=== PATIENT | male | born 1995 | race Caucasian/White ===

== ENCOUNTER 2017-01-20 01:54 | Emergency (ER) | payer OTHER, MEDICAID ==
[~2017-01-20] VITALS: Ht 180.3 cm; Wt 109.1 kg
[~2017-01-20 01:54] MED LIST: HALO1TAB PO; OLAN5Z PO
[2017-01-20 02:56] LABS: BASOPHILS % (AUTO) 0.4 % (0.0-2.0); EOSINOPHILS % (AUTO) 2.1 % (1.0-6.0); HEMATOCRIT 42.7 % (41-53); HEMOGLOBIN 13.9 g/dL (13.5-17.5); LYMPHOCYTES # (AUTO) 2.6 K/uL (1.0-4.8); LYMPHOCYTES % (AUTO) 22.8 % (22.0-44.0); MEAN CORPUSCULAR HEMOGLOBIN 29.2 pg (26.0-34.0); MEAN CORPUSCULAR HGB CONC 32.6 G/dL (31.0-37.0); MEAN CORPUSCULAR VOLUME 90 fL (80-100); MONOCYTES # (AUTO) 0.8 K/uL (0.1-1.0); MONOCYTES % (AUTO) 7.2 % (2.0-9.0); NEUTROPHILS # (AUTO) 7.8 K/uL (1.8-7.7); NEUTROPHILS % (AUTO) 67.5 % (40.0-70.0); PLATELET COUNT (AUTO) 248 K/uL (150-450); RED BLOOD CELL COUNT(AUTO) 4.77 MIL/uL (4.50-5.90); RED CELL DISTRIBUTION WIDTH 13.7 % (11.5-14.5); WHITE BLOOD COUNT (AUTO) 11.6 K/uL (4.5-11.0)
[2017-01-20 02:58] LABS: ANION GAP 11 mmol/L (8-16); CARBON DIOXIDE 28 mmol/L (22-29); CHLORIDE 103 mmol/L (98-107); CREATININE 1.13 mg/dL (0.60-1.30); GLOMERULAR FILTR. RATE CALC > 60 mL/min (>60); POTASSIUM 3.9 mmol/L (3.5-5.1); SODIUM SERUM 142 mmol/L (136-145); UREA NITROGEN, BLOOD 9 mg/dL (7-18)
[2017-01-20 03:05] LABS: ALANINE AMINOTRANSFERASE 47 U/L (12-78); ALBUMIN 4.6 g/dL (3.4-5.0); ASPARTATE AMINOTRANSFERASE 30 U/L (15-37); BILIRUBIN,TOTAL 0.6 mg/dL (0.1-1.0); TOTAL PROTEIN, SERUM 8.6 g/dL (6.4-8.2)
[2017-01-20 03:49] VITALS: BP 147/83
== END 2017-01-20 04:35 | disposition short-term general hospital (02) ==
LOC: EMS 01:55
DX: F20.9 Schizophrenia, unspecified (principal); F31.9 Bipolar disorder, unspecified; F12.90 Cannabis use, unspecified, uncomplicated
CPT/HCPCS: 36415; 80053; 80307; 85025; 99285; G0480

== ENCOUNTER 2017-05-18 00:16 | Emergency (ER) | payer MEDICAID, OTHER ==
[~2017-05-18] VITALS: Ht 190.5 cm; Wt 116.4 kg
[2017-05-18 02:57] VITALS: BP 134/88
== END 2017-05-18 03:32 | disposition home or self-care (01) ==
LOC: EMS 00:17
DX: S13.4XXA Sprain of ligaments of cervical spine, initial encounter (principal); S80.212A Abrasion, left knee, initial encounter; V19.9XXA Pedal cyclist (driver) (passenger) injured in unspecified traffic accident, initial encounter; Y93.I9 Activity, other involving external motion; Y92.89 Other specified places as the place of occurrence of the external cause; Y99.8 Other external cause status
CPT/HCPCS: 72125; 99284

== ENCOUNTER 2017-05-18 05:15 | Emergency (ER) | payer OTHER, MEDICAID ==
[~2017-05-18] VITALS: Ht 167.6 cm; Wt 81.8 kg
[2017-05-18 05:56] LABS: BASOPHILS % (AUTO) 0.4 % (0.0-2.0); EOSINOPHILS % (AUTO) 2.9 % (1.0-6.0); HEMOGLOBIN 12.6 g/dL (13.5-17.5); LYMPHOCYTES % (AUTO) 19.6 % (22.0-44.0); MEAN CORPUSCULAR HEMOGLOBIN 29.8 pg (26.0-34.0); MEAN CORPUSCULAR VOLUME 87 fL (80-100); MONOCYTES # (AUTO) 0.8 K/uL (0.1-1.0); MONOCYTES % (AUTO) 8.5 % (2.0-9.0); NEUTROPHILS # (AUTO) 6.9 K/uL (1.8-7.7); NEUTROPHILS % (AUTO) 68.6 % (40.0-70.0); PLATELET COUNT (AUTO) 197 K/uL (150-450); RED BLOOD CELL COUNT(AUTO) 4.23 MIL/uL (4.50-5.90); RED CELL DISTRIBUTION WIDTH 14.4 % (11.5-14.5)
[2017-05-18 06:05] LABS: ANION GAP 8 mmol/L (8-16); CALCIUM, TOTAL 9.2 mg/dL (8.8-10.5); CARBON DIOXIDE 28 mmol/L (22-29); CHLORIDE 102 mmol/L (98-107); CREATININE 1.04 mg/dL (0.60-1.30); GLOMERULAR FILTR. RATE CALC > 60 mL/min (>60); POTASSIUM 3.4 mmol/L (3.5-5.1); SODIUM SERUM 138 mmol/L (136-145); UREA NITROGEN, BLOOD 18 mg/dL (7-18)
[2017-05-18 06:11] LABS: ALANINE AMINOTRANSFERASE 39 U/L (12-78); ALBUMIN 4.1 g/dL (3.4-5.0); ASPARTATE AMINOTRANSFERASE 25 U/L (15-37); BILIRUBIN,TOTAL 0.5 mg/dL (0.1-1.0); TOTAL PROTEIN, SERUM 7.4 g/dL (6.4-8.2)
[2017-05-18] MEDS ORDERED: HALOPERIDOL 5 MG TABLET PO ONE (06:45)
[2017-05-18] MEDS ORDERED: OLANZapine 5 MG TABLET PO ONE (10:15)
[2017-05-18 17:28] VITALS: BP 129/80
== END 2017-05-18 18:24 | disposition short-term general hospital (02) ==
LOC: EEVIPCON 05:16 → EMS 05:16
DX: F25.9 Schizoaffective disorder, unspecified (principal); F31.9 Bipolar disorder, unspecified
CPT/HCPCS: 36415; 80053; 80307; 85025; 99291; G0480

== ENCOUNTER 2017-06-30 19:45 | Emergency (ER) | payer OTHER, MEDICAID ==
[~2017-06-30] VITALS: Ht 177.8 cm; Wt 88.6 kg
[2017-06-30 20:12] LABS: BASOPHILS % (AUTO) 0.5 % (0.0-2.0); HEMOGLOBIN 13.6 g/dL (13.5-17.5); LYMPHOCYTES # (AUTO) 3.9 K/uL (1.0-4.8); LYMPHOCYTES % (AUTO) 31.5 % (22.0-44.0); MEAN CORPUSCULAR HEMOGLOBIN 29.6 pg (26.0-34.0); MEAN CORPUSCULAR HGB CONC 33.1 G/dL (31.0-37.0); MEAN CORPUSCULAR VOLUME 90 fL (80-100); MONOCYTES # (AUTO) 0.7 K/uL (0.1-1.0); MONOCYTES % (AUTO) 5.7 % (2.0-9.0); NEUTROPHILS # (AUTO) 7.3 K/uL (1.8-7.7); NEUTROPHILS % (AUTO) 58.3 % (40.0-70.0); PLATELET COUNT (AUTO) 240 K/uL (150-450); RED BLOOD CELL COUNT(AUTO) 4.57 MIL/uL (4.50-5.90); RED CELL DISTRIBUTION WIDTH 14.2 % (11.5-14.5); WHITE BLOOD COUNT (AUTO) 12.5 K/uL (4.5-11.0)
[2017-06-30 20:23] LABS: ANION GAP 9 mmol/L (8-16); CALCIUM, TOTAL 9.3 mg/dL (8.8-10.5); CARBON DIOXIDE 27 mmol/L (22-29); CHLORIDE 103 mmol/L (98-107); CREATININE 1.04 mg/dL (0.60-1.30); GLOMERULAR FILTR. RATE CALC > 60 mL/min (>60); POTASSIUM 3.6 mmol/L (3.5-5.1); SODIUM SERUM 139 mmol/L (136-145); UREA NITROGEN, BLOOD 14 mg/dL (7-18)
[2017-06-30 20:29] LABS: ALANINE AMINOTRANSFERASE 43 U/L (12-78); ALBUMIN 4.3 g/dL (3.4-5.0); ASPARTATE AMINOTRANSFERASE 19 U/L (15-37); BILIRUBIN,TOTAL 0.3 mg/dL (0.1-1.0); TOTAL PROTEIN, SERUM 8.1 g/dL (6.4-8.2)
[2017-06-30] MEDS ORDERED: LORazepam 2 MG/ML VIAL IM ONE (21:45)
[2017-06-30] MEDS ORDERED: HALOPERIDOL LACTATE 5 MG/ML VIAL IM ONE (21:45)
[2017-06-30] MEDS ORDERED: DiphenhydrAMINE HCL 50 MG/ML VIAL IM ONE (21:45)
[2017-06-30 22:42] VITALS: BP 141/78
== END 2017-07-01 03:51 | disposition short-term general hospital (02) ==
LOC: EMS 19:47
DX: F29 Unspecified psychosis not due to a substance or known physiological condition (principal); F91.9 Conduct disorder, unspecified; F31.9 Bipolar disorder, unspecified; F20.9 Schizophrenia, unspecified
CPT/HCPCS: 36415; 80053; 80307; 85025; 96372; 99285; G0480; J1200; J1630; J2060

== ENCOUNTER 2017-09-29 19:33 | Emergency (ER) | payer OTHER, MEDICAID ==
[~2017-09-29] VITALS: Ht 188 cm; Wt 113.6 kg
[~2017-09-29 19:33] MED LIST changes: +OLAN5TAB40 PO; -OLAN5Z PO
[2017-09-29] MEDS ORDERED: LORazepam 2 MG TABLET PO ONE (20:00)
[2017-09-29] MEDS ORDERED: HALOPERIDOL 5 MG TABLET PO ONE (20:00)
[2017-09-29 20:10] LABS: BASOPHILS % (AUTO) 0.8 % (0.0-2.0); EOSINOPHILS # (AUTO) 0.11 K/uL (0.00-0.70); EOSINOPHILS % (AUTO) 0.84 % (1.0-6.0); HEMATOCRIT 43.4 % (41-53); HEMOGLOBIN 14.5 g/dL (13.5-17.5); LYMPHOCYTES # (AUTO) 2.6 K/uL (1.0-4.8); LYMPHOCYTES % (AUTO) 20.3 % (22.0-44.0); MEAN CORPUSCULAR HEMOGLOBIN 29.2 pg (26.0-34.0); MEAN CORPUSCULAR HGB CONC 33.4 G/dL (31.0-37.0); MEAN CORPUSCULAR VOLUME 87 fL (80-100); MONOCYTES # (AUTO) 0.8 K/uL (0.1-1.0); MONOCYTES % (AUTO) 6.2 % (2.0-9.0); NEUTROPHILS # (AUTO) 9.1 K/uL (1.8-7.7); PLATELET COUNT (AUTO) 211 K/uL (150-450); RED BLOOD CELL COUNT(AUTO) 4.98 MIL/uL (4.50-5.90); RED CELL DISTRIBUTION WIDTH 14.2 % (11.5-14.5); WHITE BLOOD COUNT (AUTO) 12.7 K/uL (4.5-11.0)
[2017-09-29] MEDS ORDERED: ACETAMINOPHEN 500 MG TABLET PO ONE (20:15)
[2017-09-29 20:21] LABS: ANION GAP 8 mmol/L (8-16); CALCIUM, TOTAL 9.8 mg/dL (8.8-10.5); CARBON DIOXIDE 29 mmol/L (22-29); CHLORIDE 100 mmol/L (98-107); GLOMERULAR FILTR. RATE CALC > 60 mL/min (>60); POTASSIUM 3.5 mmol/L (3.5-5.1); SODIUM SERUM 137 mmol/L (136-145); UREA NITROGEN, BLOOD 17 mg/dL (7-18)
[2017-09-29 20:25] LABS: ALANINE AMINOTRANSFERASE 46 U/L (12-78); ALBUMIN 4.7 g/dL (3.4-5.0); ASPARTATE AMINOTRANSFERASE 30 U/L (15-37); BILIRUBIN,TOTAL 0.6 mg/dL (0.1-1.0); TOTAL PROTEIN, SERUM 8.4 g/dL (6.4-8.2)
[2017-09-29 21:53] VITALS: BP 136/84
== END 2017-09-29 23:11 ==
LOC: EMS 19:38
DX: F25.9 Schizoaffective disorder, unspecified (principal); F31.9 Bipolar disorder, unspecified
CPT/HCPCS: 36415; 70450; 80053; 80307; 85025; 99285; G0480

== ENCOUNTER 2018-07-01 23:47 | Emergency (ER) | payer OTHER, MEDICAID ==
[~2018-07-01] VITALS: Ht 180.3 cm; Wt 104.5 kg
[2018-07-02 00:34] LABS: BASOPHILS % (AUTO) 0.5 % (0.0-2.0); EOSINOPHILS % (AUTO) 3.4 % (1.0-6.0); HEMATOCRIT 42.4 % (41-53); LYMPHOCYTES # (AUTO) 3.3 K/uL (1.0-4.8); LYMPHOCYTES % (AUTO) 28.5 % (22.0-44.0); MEAN CORPUSCULAR HEMOGLOBIN 30.2 pg (26.0-34.0); MEAN CORPUSCULAR VOLUME 92 fL (80-100); MONOCYTES # (AUTO) 0.8 K/uL (0.1-1.0); NEUTROPHILS % (AUTO) 60.6 % (40.0-70.0); PLATELET COUNT (AUTO) 229 K/uL (150-450); RED BLOOD CELL COUNT(AUTO) 4.63 MIL/uL (4.50-5.90); RED CELL DISTRIBUTION WIDTH 13.7 % (11.5-14.5)
[2018-07-02 00:41] LABS: ANION GAP 8 mmol/L (8-16); CALCIUM, TOTAL 9.3 mg/dL (8.8-10.5); CARBON DIOXIDE 28 mmol/L (22-29); CHLORIDE 106 mmol/L (98-107); CREATININE 1.06 mg/dL (0.60-1.30); GLOMERULAR FILTR. RATE CALC > 60 mL/min (>60); GLUCOSE,RANDOM 93 mg/dL (70-110); POTASSIUM 3.1 mmol/L (3.5-5.1); SODIUM SERUM 142 mmol/L (136-145); UREA NITROGEN, BLOOD 20 mg/dL (7-18)
[2018-07-02 00:48] LABS: ALANINE AMINOTRANSFERASE 50 U/L (12-78); ALBUMIN 4.2 g/dL (3.4-5.0); ALKALINE PHOSPHATASE 69 U/L (46-116); ASPARTATE AMINOTRANSFERASE 24 U/L (15-37); BILIRUBIN,TOTAL 0.4 mg/dL (0.1-1.0); TOTAL PROTEIN, SERUM 8.1 g/dL (6.4-8.2)
[2018-07-02] MEDS ORDERED: DiphenhydrAMINE HCL 50 MG/ML VIAL IM ONE (01:00)
[2018-07-02] MEDS ORDERED: LORazepam 2 MG/ML VIAL IM ONE (01:00)
[2018-07-02] MEDS ORDERED: HALOPERIDOL LACTATE 5 MG/ML VIAL IM ONE (01:00)
[2018-07-02] MEDS ORDERED: POTASSIUM CHLORIDE 20 MEQ ER TABLET PO ONE (01:45)
[2018-07-02 06:10] VITALS: BP 143/75
== END 2018-07-02 07:29 | disposition short-term general hospital (02) ==
LOC: EMS 23:47
DX: F20.9 Schizophrenia, unspecified (principal); F31.9 Bipolar disorder, unspecified; F12.10 Cannabis abuse, uncomplicated; Z79.899 Other long term (current) drug therapy
CPT/HCPCS: 36415; 80053; 85025; 96372; 99285; G0480; J1200; J1630; J2060

== ENCOUNTER 2019-01-22 07:43 | Emergency (ER) | payer OTHER, MEDICAID ==
[~2019-01-22] VITALS: Ht 193 cm; Wt 122.7 kg
[2019-01-22 08:36] LABS: BASOPHILS % (AUTO) 0.7 % (0.0-2.0); EOSINOPHILS % (AUTO) 0.8 % (1.0-6.0); HEMATOCRIT 44.8 % (41-53); HEMOGLOBIN 14.9 g/dL (13.5-17.5); LYMPHOCYTES # (AUTO) 2.1 K/uL (1.0-4.8); LYMPHOCYTES % (AUTO) 19.2 % (22.0-44.0); MEAN CORPUSCULAR HEMOGLOBIN 29.7 pg (26.0-34.0); MEAN CORPUSCULAR HGB CONC 33.3 G/dL (31.0-37.0); MEAN CORPUSCULAR VOLUME 89 fL (80-100); MONOCYTES # (AUTO) 0.5 K/uL (0.1-1.0); MONOCYTES % (AUTO) 4.8 % (2.0-9.0); NEUTROPHILS # (AUTO) 8.1 K/uL (1.8-7.7); NEUTROPHILS % (AUTO) 74.5 % (40.0-70.0); PLATELET COUNT (AUTO) 251 K/uL (150-450); RED BLOOD CELL COUNT(AUTO) 5.03 MIL/uL (4.50-5.90)
[2019-01-22 09:01] LABS: ANION GAP 10 mmol/L (8-16); CALCIUM, TOTAL 9.9 mg/dL (8.8-10.5); CARBON DIOXIDE 28 mmol/L (22-29); CHLORIDE 101 mmol/L (98-107); CREATININE 0.89 mg/dL (0.60-1.30); GLOMERULAR FILTR. RATE CALC > 60 mL/min (>60); GLUCOSE,RANDOM 114 mg/dL (70-110); POTASSIUM 3.6 mmol/L (3.5-5.1); SODIUM SERUM 139 mmol/L (136-145); UREA NITROGEN, BLOOD 12 mg/dL (7-18)
[2019-01-22 09:07] LABS: ALANINE AMINOTRANSFERASE 74 U/L (12-78); ALBUMIN 4.7 g/dL (3.4-5.0); ALKALINE PHOSPHATASE 74 U/L (46-116); ASPARTATE AMINOTRANSFERASE 33 U/L (15-37); BILIRUBIN,TOTAL 0.4 mg/dL (0.1-1.0)
[2019-01-22] MEDS ORDERED: DiphenhydrAMINE HCL 50 MG/ML VIAL ONE (10:47)
[2019-01-22] MEDS ORDERED: LORazepam 2 MG/ML VIAL ONE (10:47)
[2019-01-22] MEDS ORDERED: HALOPERIDOL LACTATE 5 MG/ML VIAL ONE (10:47)
[2019-01-22] MEDS ORDERED: LORazepam 2 MG/ML VIAL IM ONE (11:00)
[2019-01-22] MEDS ORDERED: HALOPERIDOL LACTATE 5 MG/ML VIAL IM ONE (11:00)
[2019-01-22] MEDS ORDERED: DiphenhydrAMINE HCL 50 MG/ML VIAL IM ONE (11:00)
[2019-01-22 17:20] VITALS: BP 131/79
== END 2019-01-22 17:30 ==
LOC: EMS 07:43
DX: F25.9 Schizoaffective disorder, unspecified (principal); F31.9 Bipolar disorder, unspecified; F12.90 Cannabis use, unspecified, uncomplicated; Z79.899 Other long term (current) drug therapy
CPT/HCPCS: 36415; 80053; 85025; 96372; 99285; G0480; J1200; J1630; J2060

== ENCOUNTER 2021-02-06 13:01 | Inpatient (IN) | payer MEDICAID, OTHER ==
[~2021-02-06] VITALS: Ht 185.4 cm; Wt 110.8 kg
[2021-02-06 15:50] LABS: COVID AG,FIA SOURCE NASOPHARYNGEAL
[2021-02-06 16:47] LABS: AMPHET/METH SCREEN,URINE NEGATIVE (NEGATIVE); BARBITURATE SCREEN, URINE NEGATIVE (NEGATIVE); BENZODIAZEPINES SCREEN,URINE NEGATIVE (NEGATIVE); CANNABINOID SCREEN,URINE NEGATIVE (NEGATIVE); COCAINE SCREEN,URINE NEGATIVE (NEGATIVE); METHADONE SCREEN, URINE NEGATIVE (NEGATIVE); OPIATE SCREEN,URINE NEGATIVE (NEGATIVE)
[2021-02-06 16:49] LABS: PHENCYCLIDINE SCREEN,URINE NEGATIVE (NEGATIVE)
[2021-02-06] MEDS ORDERED: ZOLPIDEM TARTRATE 10 MG TABLET PO PRN (17:45)
[2021-02-06 20:25] VITALS: BP 158/78
[2021-02-07 06:07] VITALS: BP 151/84
[2021-02-07] MEDS: LORazepam 2 MG TABLET PO PRN ×2 (08:12→17:15)
[2021-02-07] MEDS: HALOPERIDOL 5 MG TABLET PO PRN ×2 (08:12→17:15)
[2021-02-07] MEDS ORDERED: NICOTINE 14 MG/24 HOUR PATCH TD PRN (08:15)
[2021-02-07] MEDS ORDERED: CloNIDine HCL 0.1 MG TABLET PO PRN (08:15)
[2021-02-07] MEDS ORDERED: GuaiFENesin/D-METHORPHAN [SUGAR-FREE] 200-20MG/10 ML SYRUP UDCUP PO PRN (08:15)
[2021-02-07] MEDS ORDERED: PETROLATUM,WHITE 28 GM JELLY TP PRN (08:15)
[2021-02-07] MEDS ORDERED: MAG HYDROX/AL HYDROX/SIMETH ES 30 ML SUSPENSION UDCUP PO PRN (08:15)
[2021-02-07] MEDS ORDERED: MAGNESIUM HYDROXIDE SUSPENSION 30 ML UDCUP PO PRN (08:15)
[2021-02-07] MEDS ORDERED: DOCUSATE SODIUM 100 MG CAPSULE PO PRN (08:15)
[2021-02-07] MEDS ORDERED: ONDANSETRON HCL 4 MG TABLET PO PRN (08:15)
[2021-02-07] MEDS ORDERED: ALBUTEROL SULFATE HFA 90 MCG/PUFF 8 GM INHALER IH PRN (08:15)
[2021-02-07] MEDS ORDERED: LOPERAMIDE HCL 2 MG CAPSULE PO PRN (08:15)
[2021-02-07] MEDS: OLANZapine 5 MG RAPDIS TABLET PO SCH ×2 (10:00→20:10)
[2021-02-07 11:03] VITALS: BP 140/85
[2021-02-07] MEDS: IBUPROFEN 400 MG TABLET PO PRN (17:16)
[2021-02-07 17:50] VITALS: BP 145/96
[2021-02-07 18:22] VITALS: BP 122/74
[2021-02-08 08:05] VITALS: BP 117/49
[2021-02-08 08:14] LABS: CHOL/HDL RATIO 4.4 (4.2-7.3); FREE T4 (FREE THYROXINE) 1.21 ng/dL (0.76-1.46); THYROID STIMULATING HORMONE 0.92 uIU/mL (0.36-3.74)
[2021-02-08] MEDS: HALOPERIDOL 5 MG TABLET PO PRN (08:15)
[2021-02-08] MEDS: OLANZapine 5 MG RAPDIS TABLET PO SCH (08:16)
[2021-02-08] MEDS: LORazepam 2 MG TABLET PO PRN ×3 (10:41→20:03)
[2021-02-08 19:56] VITALS: BP 117/49
[2021-02-08] MEDS: IBUPROFEN 400 MG TABLET PO PRN (20:02)
[2021-02-08 21:02] VITALS: BP 116/62
[2021-02-08] MEDS: OLANZapine 10 MG RAPDIS TABLET PO SCH (21:32)
[2021-02-09 04:29] VITALS: BP 123/67
[2021-02-09 08:20] VITALS: BP 142/76
[2021-02-09] MEDS: OLANZapine 10 MG RAPDIS TABLET PO SCH ×2 (08:23→20:44)
[2021-02-09] MEDS: LORazepam 2 MG TABLET PO PRN ×2 (08:36→17:35)
[2021-02-09 16:04] VITALS: BP 140/80
[2021-02-09] MEDS: HALOPERIDOL 5 MG TABLET PO PRN (17:35)
[2021-02-09] MEDS: IBUPROFEN 400 MG TABLET PO PRN (17:36)
[2021-02-10 02:36] VITALS: BP 125/68
[2021-02-10 08:21] VITALS: BP 140/92
[2021-02-10] MEDS: OLANZapine 10 MG RAPDIS TABLET PO SCH (08:24)
[2021-02-10] MEDS: LORazepam 2 MG TABLET PO PRN ×2 (08:24→18:57)
[2021-02-10] MEDS: RisperiDONE 2 MG TABLET PO SCH ×2 (11:00→21:00)
[2021-02-10] MEDS: LITHIUM CARBONATE 600 MG CAPSULE PO SCH ×3 (11:06→16:37)
[2021-02-10 16:03] VITALS: BP 104/60
[2021-02-10 18:17] VITALS: BP 136/70
[2021-02-10] MEDS: IBUPROFEN 400 MG TABLET PO PRN (18:17)
[2021-02-11 01:24] VITALS: BP 146/89
[2021-02-11 08:05] VITALS: BP 150/75
[2021-02-11] MEDS: LITHIUM CARBONATE 600 MG CAPSULE PO SCH (11:17)
[2021-02-11] MEDS: RisperiDONE 2 MG TABLET PO SCH (11:18)
[2021-02-11] MEDS ORDERED: LITH600C5 PO (12:15)
[2021-02-11] MEDS ORDERED: RISP2TAB45 PO (12:15)
== END 2021-02-11 14:45 | disposition home or self-care (01) | DRG 750 ==
LOC: EMS 13:01 → B3A 17:31
PROVIDERS: ADMIT Psychiatry & Neurology Child & Adolescent Psychiatry; ATTEND Psychiatry & Neurology Child & Adolescent Psychiatry
DX: F20.9 Schizophrenia, unspecified (principal); I95.9 Hypotension, unspecified; R45.851 Suicidal ideations; Z20.822 Contact with and (suspected) exposure to COVID-19; K59.00 Constipation, unspecified; F41.9 Anxiety disorder, unspecified; F12.90 Cannabis use, unspecified, uncomplicated
CPT/HCPCS: 84439; 84443; 87426; 99285

== ENCOUNTER 2021-02-13 18:12 | Emergency (ER) | payer MEDICAID, OTHER ==
[~2021-02-13] VITALS: Ht 188 cm; Wt 102.3 kg
[~2021-02-13 18:12] MED LIST changes: -HALO1TAB PO; +LITH600C5 PO; -OLAN5TAB40 PO; +RISP2TAB45 PO
[2021-02-13 19:16] LABS: BASOPHILS % (AUTO) 0.6 % (0.0-2.0); EOSINOPHILS % (AUTO) 1.3 % (1.0-6.0); HEMATOCRIT 44.8 % (41-53); HEMOGLOBIN 14.7 g/dL (13.5-17.5); LYMPHOCYTES # (AUTO) 2.7 K/uL (1.0-4.8); LYMPHOCYTES % (AUTO) 27.7 % (22.0-44.0); MEAN CORPUSCULAR HEMOGLOBIN 29.6 pg (26.0-34.0); MEAN CORPUSCULAR HGB CONC 32.9 G/dL (31.0-37.0); MEAN CORPUSCULAR VOLUME 90 fL (80-100); MONOCYTES # (AUTO) 0.7 K/uL (0.1-1.0); MONOCYTES % (AUTO) 7.3 % (2.0-9.0); NEUTROPHILS # (AUTO) 6.1 K/uL (1.8-7.7); NEUTROPHILS % (AUTO) 63.1 % (40.0-70.0); PLATELET COUNT (AUTO) 216 K/uL (150-450); RED BLOOD CELL COUNT(AUTO) 4.98 MIL/uL (4.50-5.90); RED CELL DISTRIBUTION WIDTH 13.2 % (11.5-14.5)
[2021-02-13 19:25] LABS: ANION GAP 8 mmol/L (8-16); CALCIUM, TOTAL 10.1 mg/dL (8.8-10.5); CARBON DIOXIDE 30 mmol/L (22-29); CHLORIDE 101 mmol/L (98-107); GLOMERULAR FILTR. RATE CALC > 60 mL/min (>60); GLUCOSE,RANDOM 90 mg/dL (70-110); POTASSIUM 4.3 mmol/L (3.5-5.1); SODIUM SERUM 139 mmol/L (136-145); UREA NITROGEN, BLOOD 14 mg/dL (7-18)
[2021-02-13 19:31] LABS: ALANINE AMINOTRANSFERASE 44 U/L (12-78); ALBUMIN 4.5 g/dL (3.4-5.0); ALKALINE PHOSPHATASE 77 U/L (46-116); ASPARTATE AMINOTRANSFERASE 23 U/L (15-37); BILIRUBIN,TOTAL 0.5 mg/dL (0.1-1.0); TOTAL PROTEIN, SERUM 8.8 g/dL (6.4-8.2)
[2021-02-13] MEDS ORDERED: RisperiDONE 1 MG TABLET PO ONE (20:00)
[2021-02-13 20:59] VITALS: BP 136/83
== END 2021-02-13 21:00 | disposition home or self-care (01) ==
LOC: EMS 18:12
DX: F20.9 Schizophrenia, unspecified (principal); R51.9 Headache, unspecified; F31.9 Bipolar disorder, unspecified; F12.90 Cannabis use, unspecified, uncomplicated
CPT/HCPCS: 36415; 80053; 85025; 99283; G0480

== ENCOUNTER 2021-02-14 20:57 | Emergency (ER) | payer OTHER ==
[~2021-02-14] VITALS: Ht 188 cm; Wt 102.3 kg
[2021-02-14 22:30] VITALS: BP 135/90
== END 2021-02-14 23:20 | disposition home or self-care (01) ==
LOC: EMS 21:10
DX: S80.211A Abrasion, right knee, initial encounter (principal); F31.9 Bipolar disorder, unspecified; F20.9 Schizophrenia, unspecified; F12.90 Cannabis use, unspecified, uncomplicated; Z79.899 Other long term (current) drug therapy; W18.39XA Other fall on same level, initial encounter; Y93.89 Activity, other specified; Y92.89 Other specified places as the place of occurrence of the external cause; Y99.8 Other external cause status
CPT/HCPCS: 99281; Z7502

== ENCOUNTER 2021-03-16 16:11 | Inpatient (IN) | payer MEDICAID, OTHER ==
[~2021-03-16] VITALS: Ht 180.3 cm; Wt 112.7 kg
[2021-03-16] MEDS ORDERED: HALOPERIDOL LACTATE 5 MG/ML VIAL IM ONE (17:15)
[2021-03-16] MEDS ORDERED: LORazepam 2 MG/ML VIAL IM ONE (17:15)
[2021-03-16] MEDS ORDERED: DiphenhydrAMINE HCL 50 MG/ML VIAL IM ONE (17:15)
[2021-03-16 19:08] LABS: BASOPHILS % (AUTO) 0.2 % (0.0-2.0); EOSINOPHILS % (AUTO) 0.1 % (1.0-6.0); HEMATOCRIT 40.7 % (41-53); HEMOGLOBIN 13.1 g/dL (13.5-17.5); LYMPHOCYTES # (AUTO) 1.9 K/uL (1.0-4.8); LYMPHOCYTES % (AUTO) 14.8 % (22.0-44.0); MEAN CORPUSCULAR HEMOGLOBIN 28.9 pg (26.0-34.0); MEAN CORPUSCULAR HGB CONC 32.1 G/dL (31.0-37.0); MEAN CORPUSCULAR VOLUME 90 fL (80-100); MONOCYTES # (AUTO) 0.6 K/uL (0.1-1.0); MONOCYTES % (AUTO) 4.8 % (2.0-9.0); NEUTROPHILS # (AUTO) 10.2 K/uL (1.8-7.7); NEUTROPHILS % (AUTO) 80.1 % (40.0-70.0); PLATELET COUNT (AUTO) 214 K/uL (150-450); RED BLOOD CELL COUNT(AUTO) 4.53 MIL/uL (4.50-5.90); RED CELL DISTRIBUTION WIDTH 13.8 % (11.5-14.5)
[2021-03-16 19:19] LABS: ANION GAP 12 mmol/L (8-16); CALCIUM, TOTAL 9.1 mg/dL (8.8-10.5); CARBON DIOXIDE 27 mmol/L (22-29); CHLORIDE 103 mmol/L (98-107); CREATININE 1.03 mg/dL (0.60-1.30); GLOMERULAR FILTR. RATE CALC > 60 mL/min (>60); GLUCOSE,RANDOM 87 mg/dL (70-110); POTASSIUM 3.5 mmol/L (3.5-5.1); SODIUM SERUM 142 mmol/L (136-145); UREA NITROGEN, BLOOD 12 mg/dL (7-18)
[2021-03-16 19:24] LABS: ALANINE AMINOTRANSFERASE 63 U/L (12-78); ALBUMIN 4.1 g/dL (3.4-5.0); ALKALINE PHOSPHATASE 64 U/L (46-116); ASPARTATE AMINOTRANSFERASE 26 U/L (15-37); BILIRUBIN,TOTAL 0.5 mg/dL (0.1-1.0); TOTAL PROTEIN, SERUM 7.3 g/dL (6.4-8.2)
[2021-03-16] MEDS ORDERED: ZOLPIDEM TARTRATE 10 MG TABLET PO PRN (19:45)
[2021-03-16] MEDS ORDERED: LORazepam 2 MG TABLET PO PRN (19:45)
[2021-03-16] MEDS ORDERED: HALOPERIDOL 5 MG TABLET PO PRN (19:45)
[2021-03-16 20:38] LABS: LITHIUM < 0.20 mmol/L (0.60-1.20)
[2021-03-16 20:45] LABS: COVID AG,FIA SOURCE NASOPHARYNGEAL
[2021-03-17] MEDS ORDERED: DOCUSATE SODIUM 100 MG CAPSULE PO PRN (07:45)
[2021-03-17] MEDS ORDERED: LOPERAMIDE HCL 2 MG CAPSULE PO PRN (07:45)
[2021-03-17] MEDS ORDERED: ONDANSETRON HCL 4 MG TABLET PO PRN (07:45)
[2021-03-17] MEDS ORDERED: MAG HYDROX/AL HYDROX/SIMETH ES 30 ML SUSPENSION UDCUP PO PRN (07:45)
[2021-03-17] MEDS ORDERED: MAGNESIUM HYDROXIDE SUSPENSION 30 ML UDCUP PO PRN (07:45)
[2021-03-17] MEDS ORDERED: PETROLATUM,WHITE 28 GM JELLY TP PRN (07:45)
[2021-03-17] MEDS ORDERED: CloNIDine HCL 0.1 MG TABLET PO PRN (07:45)
[2021-03-17] MEDS ORDERED: GuaiFENesin/D-METHORPHAN [SUGAR-FREE] 200-20MG/10 ML SYRUP UDCUP PO PRN (07:45)
[2021-03-17] MEDS ORDERED: NICOTINE 14 MG/24 HOUR PATCH TD PRN (07:45)
[2021-03-17] MEDS ORDERED: ALBUTEROL SULFATE HFA 90 MCG/PUFF 8 GM INHALER IH PRN (07:45)
[2021-03-17] MEDS ORDERED: DiphenhydrAMINE HCL 50 MG/ML VIAL IM ONE (08:00)
[2021-03-17] MEDS ORDERED: LORazepam 2 MG/ML VIAL IM ONE (08:00)
[2021-03-17] MEDS ORDERED: HALOPERIDOL LACTATE 5 MG/ML VIAL IM ONE (08:00)
[2021-03-17] MEDS: LITHIUM CARBONATE 600 MG CAPSULE PO SCH (17:00)
[2021-03-17] MEDS: OLANZapine 7.5 MG TABLET PO SCH (20:48)
[2021-03-17] MEDS: RisperiDONE 2 MG TABLET PO SCH (20:48)
[2021-03-18] MEDS: LITHIUM CARBONATE 600 MG CAPSULE PO SCH ×2 (06:26→17:00)
[2021-03-18] MEDS: RisperiDONE 2 MG TABLET PO SCH ×2 (08:23→21:00)
[2021-03-18] MEDS: OLANZapine 7.5 MG TABLET PO SCH ×2 (08:24→21:00)
[2021-03-19] MEDS ORDERED: DiphenhydrAMINE HCL 50 MG/ML VIAL ONE (01:11)
[2021-03-19] MEDS ORDERED: HALOPERIDOL LACTATE 5 MG/ML VIAL ONE (01:11)
[2021-03-19] MEDS ORDERED: LORazepam 2 MG/ML VIAL ONE (01:11)
[2021-03-19] MEDS ORDERED: DiphenhydrAMINE HCL 50 MG/ML VIAL IM ONE (01:15)
[2021-03-19] MEDS ORDERED: HALOPERIDOL LACTATE 5 MG/ML VIAL IM ONE (01:15)
[2021-03-19] MEDS ORDERED: LORazepam 2 MG/ML VIAL IM ONE (01:15)
[2021-03-19] MEDS: LITHIUM CARBONATE 600 MG CAPSULE PO SCH ×2 (07:00→16:53)
[2021-03-19] MEDS: ACETAMINOPHEN 325 MG TABLET PO PRN (08:25)
[2021-03-19] MEDS: RisperiDONE 2 MG TABLET PO SCH ×2 (08:40→20:52)
[2021-03-19] MEDS: OLANZapine 7.5 MG TABLET PO SCH ×2 (08:41→20:52)
[2021-03-19 17:31] VITALS: BP 108/65
[2021-03-20 05:41] VITALS: BP 147/88
[2021-03-20] MEDS: LITHIUM CARBONATE 600 MG CAPSULE PO SCH ×2 (06:23→16:42)
[2021-03-20 08:31] VITALS: BP 146/84
[2021-03-20] MEDS: OLANZapine 7.5 MG TABLET PO SCH ×2 (08:38→21:41)
[2021-03-20] MEDS: RisperiDONE 2 MG TABLET PO SCH ×2 (08:38→21:41)
[2021-03-20 16:15] VITALS: BP 134/87
[2021-03-21 06:22] VITALS: BP 132/72
[2021-03-21] MEDS: LITHIUM CARBONATE 600 MG CAPSULE PO SCH (06:22)
[2021-03-21 08:18] LABS: CHOL/HDL RATIO 4.1 (4.2-7.3)
[2021-03-21 08:23] VITALS: BP 132/72
[2021-03-21] MEDS: RisperiDONE 2 MG TABLET PO SCH ×2 (08:58→20:58)
[2021-03-21] MEDS: OLANZapine 7.5 MG TABLET PO SCH ×2 (08:58→20:57)
[2021-03-21 16:19] VITALS: BP 130/77
[2021-03-21] MEDS: IBUPROFEN 400 MG TABLET PO PRN (19:33)
[2021-03-22 00:22] VITALS: BP 142/70
[2021-03-22] MEDS: RisperiDONE 2 MG TABLET PO SCH (08:08)
[2021-03-22] MEDS: OLANZapine 7.5 MG TABLET PO SCH ×2 (08:08→20:38)
[2021-03-22 08:20] VITALS: BP 140/76
[2021-03-22 16:09] VITALS: BP 115/69
[2021-03-23 04:42] VITALS: BP 127/7
[2021-03-23 08:08] LABS: BASOPHILS % (AUTO) 0.6 % (0.0-2.0); EOSINOPHILS % (AUTO) 0.6 % (1.0-6.0); HEMOGLOBIN 14.5 g/dL (13.5-17.5); LYMPHOCYTES # (AUTO) 2.1 K/uL (1.0-4.8); LYMPHOCYTES % (AUTO) 23.8 % (22.0-44.0); MEAN CORPUSCULAR HEMOGLOBIN 29.6 pg (26.0-34.0); MEAN CORPUSCULAR VOLUME 90 fL (80-100); MONOCYTES # (AUTO) 0.6 K/uL (0.1-1.0); MONOCYTES % (AUTO) 7.4 % (2.0-9.0); NEUTROPHILS # (AUTO) 5.8 K/uL (1.8-7.7); NEUTROPHILS % (AUTO) 67.6 % (40.0-70.0); PLATELET COUNT (AUTO) 270 K/uL (150-450); RED CELL DISTRIBUTION WIDTH 13.8 % (11.5-14.5)
[2021-03-23 08:12] VITALS: BP 128/68
[2021-03-23] MEDS: OLANZapine 7.5 MG TABLET PO SCH ×3 (09:00→20:37)
[2021-03-23 16:11] VITALS: BP 159/88
[2021-03-24 02:36] VITALS: BP 134/72
[2021-03-24 08:40] VITALS: BP 132/68
[2021-03-24] MEDS: CYANOCOBALAMIN 100 MCG TABLET PO SCH (08:47)
[2021-03-24] MEDS: MULTIVITAMINS, THERAPEUTIC TABLET PO SCH (08:47)
[2021-03-24] MEDS: ACETAMINOPHEN 325 MG TABLET PO PRN (08:47)
[2021-03-24] MEDS: OLANZapine 7.5 MG TABLET PO SCH ×2 (08:51→20:39)
[2021-03-24 16:08] VITALS: BP 134/70
[2021-03-24] MEDS: IBUPROFEN 400 MG TABLET PO PRN (19:16)
[2021-03-25 08:24] VITALS: BP 141/90
[2021-03-25] MEDS ORDERED: OLAN7.5T22 PO (08:45)
[2021-03-25] MEDS: CYANOCOBALAMIN 100 MCG TABLET PO SCH (09:00)
[2021-03-25] MEDS: OLANZapine 7.5 MG TABLET PO SCH (09:00)
[2021-03-25] MEDS: MULTIVITAMINS, THERAPEUTIC TABLET PO SCH (09:00)
== END 2021-03-25 13:40 | disposition home or self-care (01) | DRG 750 ==
LOC: EMS 16:11 → B3A 22:00
PROVIDERS: ADMIT Psychiatry & Neurology Child & Adolescent Psychiatry; ATTEND Psychiatry & Neurology Child & Adolescent Psychiatry
DX: F25.0 Schizoaffective disorder, bipolar type (principal); Z59.0 Homelessness; D72.829 Elevated white blood cell count, unspecified; E66.9 Obesity, unspecified; F32.9 Major depressive disorder, single episode, unspecified; F41.9 Anxiety disorder, unspecified; K59.00 Constipation, unspecified; R45.87 Impulsiveness; Z20.822 Contact with and (suspected) exposure to COVID-19; Z91.14 Patient's other noncompliance with medication regimen; Z68.34 Body mass index [BMI] 34.0-34.9, adult
CPT/HCPCS: 80053; 80061; 80178; 85025; 87426; 99291; G0480; J1200; J1630; J2060

== ENCOUNTER 2021-03-26 17:53 | Inpatient (IN) | payer MEDICAID, OTHER ==
[~2021-03-26] VITALS: Ht 185.4 cm; Wt 106.6 kg
[2021-03-26 20:14] LABS: BASOPHILS % (AUTO) 0.7 % (0.0-2.0); EOSINOPHILS % (AUTO) 0.6 % (1.0-6.0); HEMATOCRIT 43.4 % (41-53); HEMOGLOBIN 14.6 g/dL (13.5-17.5); LYMPHOCYTES # (AUTO) 1.4 K/uL (1.0-4.8); MEAN CORPUSCULAR HEMOGLOBIN 30.1 pg (26.0-34.0); MEAN CORPUSCULAR HGB CONC 33.7 G/dL (31.0-37.0); MEAN CORPUSCULAR VOLUME 89 fL (80-100); MONOCYTES # (AUTO) 0.5 K/uL (0.1-1.0); MONOCYTES % (AUTO) 6.1 % (2.0-9.0); NEUTROPHILS # (AUTO) 6.2 K/uL (1.8-7.7); NEUTROPHILS % (AUTO) 75.6 % (40.0-70.0); PLATELET COUNT (AUTO) 237 K/uL (150-450); RED BLOOD CELL COUNT(AUTO) 4.86 MIL/uL (4.50-5.90); RED CELL DISTRIBUTION WIDTH 13.8 % (11.5-14.5)
[2021-03-26 20:15] LABS: AMPHET/METH SCREEN,URINE NEGATIVE (NEGATIVE); BARBITURATE SCREEN, URINE NEGATIVE (NEGATIVE); BENZODIAZEPINES SCREEN,URINE NEGATIVE (NEGATIVE); CANNABINOID SCREEN,URINE POSITIVE (NEGATIVE); COCAINE SCREEN,URINE NEGATIVE (NEGATIVE); METHADONE SCREEN, URINE NEGATIVE (NEGATIVE); OPIATE SCREEN,URINE NEGATIVE (NEGATIVE); PHENCYCLIDINE SCREEN,URINE NEGATIVE (NEGATIVE)
[2021-03-26 20:26] LABS: ANION GAP 7 mmol/L (8-16); CALCIUM, TOTAL 9.8 mg/dL (8.8-10.5); CARBON DIOXIDE 29 mmol/L (22-29); CHLORIDE 101 mmol/L (98-107); CREATININE 1.03 mg/dL (0.60-1.30); GLOMERULAR FILTR. RATE CALC > 60 mL/min (>60); GLUCOSE,RANDOM 102 mg/dL (70-110); POTASSIUM 3.7 mmol/L (3.5-5.1); SODIUM SERUM 137 mmol/L (136-145); UREA NITROGEN, BLOOD 10 mg/dL (7-18)
[2021-03-26 20:34] LABS: ALANINE AMINOTRANSFERASE 51 U/L (12-78); ALBUMIN 4.8 g/dL (3.4-5.0); ALKALINE PHOSPHATASE 71 U/L (46-116); ASPARTATE AMINOTRANSFERASE 26 U/L (15-37); BILIRUBIN,TOTAL 0.9 mg/dL (0.1-1.0); TOTAL PROTEIN, SERUM 8.3 g/dL (6.4-8.2)
[2021-03-26] MEDS ORDERED: ZOLPIDEM TARTRATE 10 MG TABLET PO PRN (21:30)
[2021-03-26 22:51] LABS: COVID AG,FIA SOURCE NASOPHARYNGEAL
[2021-03-27 05:28] VITALS: BP 157/86
[2021-03-27] MEDS ORDERED: ACETAMINOPHEN 325 MG TABLET PO PRN ×2 (07:00→08:00)
[2021-03-27] MEDS ORDERED: GuaiFENesin/D-METHORPHAN [SUGAR-FREE] 200-20MG/10 ML SYRUP UDCUP PO PRN (08:00)
[2021-03-27] MEDS ORDERED: DOCUSATE SODIUM 100 MG CAPSULE PO PRN (08:00)
[2021-03-27] MEDS ORDERED: MAGNESIUM HYDROXIDE SUSPENSION 30 ML UDCUP PO PRN (08:00)
[2021-03-27] MEDS ORDERED: ONDANSETRON HCL 4 MG TABLET PO PRN (08:00)
[2021-03-27] MEDS ORDERED: CloNIDine HCL 0.1 MG TABLET PO PRN (08:00)
[2021-03-27] MEDS ORDERED: ALBUTEROL SULFATE HFA 90 MCG/PUFF 8 GM INHALER IH PRN (08:00)
[2021-03-27] MEDS ORDERED: MAG HYDROX/AL HYDROX/SIMETH ES 30 ML SUSPENSION UDCUP PO PRN (08:00)
[2021-03-27] MEDS ORDERED: PETROLATUM,WHITE 28 GM JELLY TP PRN (08:00)
[2021-03-27] MEDS ORDERED: LOPERAMIDE HCL 2 MG CAPSULE PO PRN (08:00)
[2021-03-27] MEDS ORDERED: NICOTINE 14 MG/24 HOUR PATCH TD PRN (08:00)
[2021-03-27 08:20] LABS: CHOL/HDL RATIO 3.1 (4.2-7.3)
[2021-03-27 08:37] VITALS: BP 152/92
[2021-03-27] MEDS: IBUPROFEN 400 MG TABLET PO PRN (13:00)
[2021-03-27] MEDS: LORazepam 2 MG TABLET PO PRN (13:00)
[2021-03-27 16:16] VITALS: BP 127/87
[2021-03-27] MEDS ORDERED: RisperiDONE 2 MG TABLET PO SCH (21:00)
[2021-03-27] MEDS: OLANZapine 10 MG TABLET PO SCH (21:18)
[2021-03-28] MEDS: OLANZapine 10 MG TABLET PO SCH ×2 (08:41→20:54)
[2021-03-28] MEDS: LORazepam 2 MG TABLET PO PRN ×2 (08:41→17:11)
[2021-03-28 08:55] VITALS: BP 142/92
[2021-03-28] MEDS: IBUPROFEN 400 MG TABLET PO PRN (12:09)
[2021-03-29 06:13] VITALS: BP 138/74
[2021-03-29] MEDS: OLANZapine 10 MG TABLET PO SCH ×2 (08:11→21:01)
[2021-03-29] MEDS: LORazepam 2 MG TABLET PO PRN ×3 (08:12→21:01)
[2021-03-29 08:32] VITALS: BP 148/88
[2021-03-29] MEDS: HALOPERIDOL 5 MG TABLET PO PRN (15:07)
[2021-03-29] MEDS ORDERED: DiphenhydrAMINE HCL 50 MG/ML VIAL ONE (15:11)
[2021-03-29] MEDS ORDERED: HALOPERIDOL LACTATE 5 MG/ML VIAL ONE (15:11)
[2021-03-29] MEDS ORDERED: DiphenhydrAMINE HCL 50 MG/ML VIAL IM ONE (15:15)
[2021-03-29] MEDS ORDERED: LORazepam 2 MG/ML VIAL IM ONE (15:15)
[2021-03-29] MEDS ORDERED: HALOPERIDOL LACTATE 5 MG/ML VIAL IM ONE (15:15)
[2021-03-29 16:12] VITALS: BP 147/79
[2021-03-30 05:53] VITALS: BP 142/79
[2021-03-30 08:24] VITALS: BP 116/60
[2021-03-30] MEDS: OLANZapine 10 MG TABLET PO SCH ×2 (09:09→20:25)
[2021-03-30] MEDS: HALOPERIDOL 5 MG TABLET PO PRN ×2 (10:38→16:45)
[2021-03-30 16:26] VITALS: BP 133/90
[2021-03-30] MEDS: LORazepam 2 MG TABLET PO PRN (16:45)
[2021-03-31 00:18] VITALS: BP 132/82
[2021-03-31] MEDS: LORazepam 2 MG TABLET PO PRN (08:20)
[2021-03-31] MEDS: OLANZapine 10 MG TABLET PO SCH ×2 (08:20→20:43)
[2021-03-31 08:29] VITALS: BP 142/89
[2021-03-31 16:15] VITALS: BP 143/91
[2021-04-01 03:38] VITALS: BP 135/86
[2021-04-01] MEDS: OLANZapine 10 MG TABLET PO SCH ×2 (08:11→20:26)
[2021-04-01] MEDS: LORazepam 2 MG TABLET PO PRN ×2 (08:11→16:22)
[2021-04-01 09:16] VITALS: BP 145/83
[2021-04-01] MEDS: HALOPERIDOL 5 MG TABLET PO PRN (16:22)
[2021-04-01 16:23] VITALS: BP 135/88
[2021-04-02 04:15] VITALS: BP 131/82
[2021-04-02] MEDS: OLANZapine 10 MG TABLET PO SCH (08:14)
[2021-04-02 08:33] VITALS: BP 140/81
[2021-04-02] MEDS ORDERED: OLAN7.5T22 PO ×3 (09:03→09:41)
== END 2021-04-02 12:29 | disposition home or self-care (01) | DRG 750 ==
LOC: EMS 17:53 → B3A 22:14
PROVIDERS: ADMIT Psychiatry & Neurology Child & Adolescent Psychiatry; ATTEND Psychiatry & Neurology Child & Adolescent Psychiatry
DX: F25.0 Schizoaffective disorder, bipolar type (principal); R45.851 Suicidal ideations; F10.10 Alcohol abuse, uncomplicated; F12.90 Cannabis use, unspecified, uncomplicated; F41.1 Generalized anxiety disorder; E66.9 Obesity, unspecified; Z88.8 Allergy status to other drugs, medicaments and biological substances; Z20.822 Contact with and (suspected) exposure to COVID-19
CPT/HCPCS: 80053; 80061; 85025; 99285; G0480; J1200; J1630; J2060

== ENCOUNTER 2021-04-01 11:27 | Emergency (ER) | payer MEDICAID, OTHER ==
[~2021-04-01] VITALS: Ht 182.9 cm; Wt 108.2 kg
[2021-04-01 13:14] VITALS: BP 140/67
[2021-04-02] MEDS ORDERED: OLAN7.5T22 PO ×3 (09:03→09:41)
== END 2021-04-01 14:57 | disposition home or self-care (01) ==
LOC: EMS 11:35
DX: R10.30 Lower abdominal pain, unspecified (principal); F31.9 Bipolar disorder, unspecified; F20.9 Schizophrenia, unspecified
CPT/HCPCS: 74176; 99284; Z7502

== ENCOUNTER 2021-04-02 20:17 | Emergency (ER) | payer OTHER ==
[~2021-04-02 20:17] MED LIST changes: -LITH600C5 PO; +OLAN7.5T22 PO; -RISP2TAB45 PO
== END 2021-04-02 21:36 | disposition left against medical advice (07) ==
LOC: EMS 20:17
DX: Z00.8 Encounter for other general examination (principal); Z53.21 Procedure and treatment not carried out due to patient leaving prior to being seen by health care provider

== ENCOUNTER → 2021-04-24 | Emergency (ER) | payer OTHER ==
[~2021-04-24] VITALS: Ht 177.8 cm; Wt 95.5 kg
[~2021-04-24] MED LIST changes: +DiphenhydrAMINE HCL 50 MG/ML VIAL IM ONE; +HALOPERIDOL 5 MG TABLET PO PRN; +HALOPERIDOL LACTATE 5 MG/ML VIAL IM ONE; +LORazepam 2 MG TABLET PO PRN; +LORazepam 2 MG/ML VIAL IM ONE; +ZOLPIDEM TARTRATE 10 MG TABLET PO PRN
[2021-04-24 22:59] LABS: BASOPHILS % (AUTO) 0.7 % (0.0-2.0); EOSINOPHILS % (AUTO) 1.7 % (1.0-6.0); HEMATOCRIT 39.7 % (41-53); LYMPHOCYTES # (AUTO) 2.7 K/uL (1.0-4.8); LYMPHOCYTES % (AUTO) 26.7 % (22.0-44.0); MEAN CORPUSCULAR HEMOGLOBIN 29.4 pg (26.0-34.0); MEAN CORPUSCULAR HGB CONC 32.6 G/dL (31.0-37.0); MEAN CORPUSCULAR VOLUME 90 fL (80-100); MONOCYTES # (AUTO) 0.9 K/uL (0.1-1.0); MONOCYTES % (AUTO) 9.2 % (2.0-9.0); NEUTROPHILS # (AUTO) 6.3 K/uL (1.8-7.7); NEUTROPHILS % (AUTO) 61.7 % (40.0-70.0); PLATELET COUNT (AUTO) 184 K/uL (150-450); RED BLOOD CELL COUNT(AUTO) 4.41 MIL/uL (4.50-5.90); RED CELL DISTRIBUTION WIDTH 14.2 % (11.5-14.5)
[2021-04-24 23:16] LABS: ANION GAP 6 mmol/L (8-16); CALCIUM, TOTAL 8.9 mg/dL (8.8-10.5); CARBON DIOXIDE 27 mmol/L (22-29); CHLORIDE 103 mmol/L (98-107); CREATININE 0.96 mg/dL (0.60-1.30); GLOMERULAR FILTR. RATE CALC > 60 mL/min (>60); GLUCOSE,RANDOM 92 mg/dL (70-110); POTASSIUM 3.5 mmol/L (3.5-5.1); SODIUM SERUM 136 mmol/L (136-145); UREA NITROGEN, BLOOD 19 mg/dL (7-18)
[2021-04-24 23:20] LABS: ALANINE AMINOTRANSFERASE 57 U/L (12-78); ALBUMIN 4.1 g/dL (3.4-5.0); ALKALINE PHOSPHATASE 66 U/L (46-116); ASPARTATE AMINOTRANSFERASE 34 U/L (15-37); BILIRUBIN,TOTAL 0.8 mg/dL (0.1-1.0); TOTAL PROTEIN, SERUM 7.4 g/dL (6.4-8.2)
[2021-04-25 05:44] LABS: COVID AG,FIA SOURCE NASOPHARYNGEAL
[2021-04-25 16:40] LABS: AMPHET/METH SCREEN,URINE NEGATIVE (NEGATIVE); BARBITURATE SCREEN, URINE NEGATIVE (NEGATIVE); BENZODIAZEPINES SCREEN,URINE NEGATIVE (NEGATIVE); CANNABINOID SCREEN,URINE POSITIVE (NEGATIVE); COCAINE SCREEN,URINE NEGATIVE (NEGATIVE); METHADONE SCREEN, URINE NEGATIVE (NEGATIVE); OPIATE SCREEN,URINE NEGATIVE (NEGATIVE)
[2021-04-25 16:41] LABS: PHENCYCLIDINE SCREEN,URINE NEGATIVE (NEGATIVE)
[2021-04-27 01:51] VITALS: BP 119/73
== END | disposition home or self-care (01) ==
LOC: EMS 20:25
DX: F25.9 Schizoaffective disorder, unspecified (principal); F32.9 Major depressive disorder, single episode, unspecified; F69 Unspecified disorder of adult personality and behavior; R41.82 Altered mental status, unspecified; F12.90 Cannabis use, unspecified, uncomplicated; Z20.822 Contact with and (suspected) exposure to COVID-19
CPT/HCPCS: 36415; 80053; 80061; 80307; 85025; 87426; 96372; 99291; G0480; J1200; J1630; J2060

== ENCOUNTER 2024-01-31 15:23 | Emergency (ER) | payer OTHER ==
[~2024-01-31] VITALS: Ht 177.8 cm; Wt 84.1 kg
[~2024-01-31 15:23] MED LIST changes: -DiphenhydrAMINE HCL 50 MG/ML VIAL IM ONE; -HALOPERIDOL 5 MG TABLET PO PRN; -HALOPERIDOL LACTATE 5 MG/ML VIAL IM ONE; -LORazepam 2 MG TABLET PO PRN; -LORazepam 2 MG/ML VIAL IM ONE; -ZOLPIDEM TARTRATE 10 MG TABLET PO PRN
[2024-01-31 15:27] VITALS: BP 149/79; PULSE 78; RESP 18; TEMP 98.5
== END 2024-01-31 17:03 | disposition left against medical advice (07) ==
LOC: EMS 15:23
DX: Z53.21 Procedure and treatment not carried out due to patient leaving prior to being seen by health care provider (principal)
CPT/HCPCS: 99281; Z7502